=== PATIENT | male | born 1995 | race Caucasian/White ===

== ENCOUNTER 2017-06-16 00:34 | Emergency (ER) | payer OTHER ==
[2017-06-16] MEDS ORDERED: NS 1,000 ML IV ONE (01:14)
[2017-06-16] MEDS ORDERED: ONDANSETRON 4 MG/2 ML VIAL IVP ONE (01:14)
--- NOTE | 2017-06-16 01:19 | EDPHY ---
H & P Stated Complaint: abd pain and vomiting with pink in it HPI/ROS: HPI CHIEF COMPLAINT: Nausea, vomiting, abdominal pain after drinking a 0.5 L of Jagermeister, and eating spicy food HISTORY OF PRESENT ILLNESS: Patient 22-year-old male, otherwise healthy with no significant medical history presents emergency room nausea vomiting and abdominal cramping after he drank a half a L of Jagermeister and then a very spicy foods. Denies any chest pain or shortness of breath. Denies diarrhea denies fever. He vomited 6 times. He states on his last vomit he had some pink discoloration to he became concerned and came to the emergency room. Past Medical History: Denies medical history Past Surgical History: Denies surgical history Social History: Drank a large amount of alcohol tonight. [employer] student. Denies illicit drugs tobacco. Family History: Noncontributory ROS REVIEW OF SYSTEMS: A comprehensive 10 point review of systems is otherwise negative aside from elements mentioned in the history of present illness. Exam Constitutional appears well nontoxic triage nursing summary reviewed, vital signs reviewed, awake/alert. Eyes normal conjunctivae and sclera, EOMI, PERRLA. HENT normal inspection, atraumatic, moist mucus membranes, no epistaxis, neck supple/ no meningismus, no raccoon eyes. Respiratory clear to auscultation bilaterally, normal breath sounds, no respiratory distress, no wheezing. Cardiovascular rate normal, regular rhythm, no murmur, no edema, distal pulses normal. Gastrointestinal no significant tenderness on exam, soft, non-tender, no rebound, no guarding, normal bowel sounds, no distension, no pulsatile mass. Genitourinary no CVA tenderness. Musculoskeletal no midline vertebral tenderness, full range of motion, no calf swelling, no tenderness of extremities, no meningismus, good pulses, neurovascularly intact. Skin pink, warm, & dry, no rash, skin atraumatic. Neurologic awake, alert and oriented x 3, AAOx3, moves all 4 extremities equally, motor intact, sensory intact, CN II-XII intact, normal cerebellar, normal vision, normal speech. Psychiatric normal mood/affect. Heme/Lymph/Immune no lymphadenopathy. Differential diagnosis includes but is not limited to and in no particular order : Alcohol-induced gastritis, alcohol-induced pancreatitis, peptic ulcer disease , Shannan-Leger tear, esophagitis, Bowel obstruction, appendicitis, gallbladder disease, diverticulitis, colitis, enteritis, perforated viscus, gastritis, GERD , esophagitis, urinary tract infection, pyelonephritis, kidney stones Medical Decision Making: Plan for this patient IV establishment with IV Pepcid , IV Zofran nausea, IV fluids, check basic blood work including lipase and re- evaluate. At this time I do not feel the patient needs any imaging. Will treat symptomatically re-evaluate. Re-evaluation: 0258: Re-examination at this time this patient is resting comfortably abdomen is soft nontender. He is not vomiting he feels much better. He did receive fluid here normal saline IV in the emergency room. His blood work has been reviewed. He was dehydrated. His alcohol level was 139. Recommend he refrain from drinking alcohol for the next 2 weeks, stay away from spicy fatty greasy foods. Distally return precautions discussed with the patient understands return emergency room if develops worsening abdominal pain fever vomiting. Source: Patient - Personal History Current Tetanus/Diphtheria Vaccine: Yes Current Tetanus Diphtheria and Acellular Pertussis (TDAP): Yes Tetanus Vaccine Date: 2008 - Medical/Surgical History Hx Asthma: No Hx Chronic Respiratory Disease: No Hx Diabetes: No Hx Cardiac Disease: No Hx Renal Disease: No Hx Cirrhosis: No Hx Alcoholism: No Hx HIV/AIDS: No Hx Splenectomy or Spleen Trauma: No Other PMH: denies - Social History Smoking Status: Never smoked Constitutional: Initial Vital Signs Temperature (C) 36.5 C 06/16/17 01:04 Heart Rate 78 06/16/17 01:04 Respiratory Rate 16 06/16/17 01:04 Blood Pressure 118/69 06/16/17 01:04 O2 Sat (%) 95 06/16/17 01:04 O2 Delivery Mode Room Air Allergies/Adverse Reactions: No Known Allergies Allergy (Unverified 06/16/17 01:06) Home Medications: Medication Instructions Recorded NK [No Known Home Meds] 06/16/17 Medical Decision Making - Data Points Laboratory Results: Laboratory Results 06/16/17 01:43 06/16/17 01:43 06/16/17 06/16/17 06/16/17 02:30 01:43 01:43 WBC RBC Hgb Hct MCV MCH MCHC RDW Plt Count MPV Neut % (Auto) Lymph % (Auto) [place] % (Auto) Eos % (Auto) Baso % (Auto) Nucleat RBC Rel Count Absolute Neuts (auto) Absolute Lymphs (auto) Absolute Monos (auto) Absolute Eos (auto) Absolute Basos (auto) Absolute Nucleated RBC Immature Gran % Immature Gran # PT 15.4 SEC H SEC (12.0-15.0) INR 1.20 H (0.83-1.16) APTT 27.8 SEC SEC (23.0-38.0) Sodium 147 mEq/L H mEq/L (135-145) Potassium 4.3 mEq/L mEq/L (3.5-5.2) Chloride 104 mEq/L mEq/L (97-110) Carbon Dioxide 21 mEq/l L mEq/l (22-31) Anion Gap 22 mEq/L H mEq/L (8-16) BUN 11 mg/dL mg/dL (7-23) Creatinine 0.7 mg/dL mg/dL (0.7-1.3) Estimated GFR > 60 Glucose 104 mg/dL H mg/dL (70-100) Calcium 9.6 mg/dL mg/dL (8.5-10.4) Total Bilirubin 1.4 mg/dL mg/dL (0.1-1.4) Conjugated Bilirubin 0.2 mg/dL mg/dL (0.0-0.5) Unconjugated Bilirubin 1.2 mg/dL H mg/dL (0.0-1.1) AST 28 IU/L IU/L (17-59) ALT 26 IU/L IU/L (21-72) Alkaline Phosphatase 52 IU/L IU/L (38-126) Total Protein 7.6 g/dL g/dL (6.3-8.2) Albumin 4.8 g/dL g/dL (3.5-5.0) Lipase 73 IU/L IU/L (23-300) Urine Color YELLOW Urine Appearance CLEAR Urine pH 6.0 (5.0-7.5) Ur Specific [place] 1.011 (1.002-1.030) Urine Protein NEGATIVE (NEGATIVE) Urine Ketones NEGATIVE (NEGATIVE) Urine Blood NEGATIVE (NEGATIVE) Urine Nitrate NEGATIVE (NEGATIVE) Urine Bilirubin NEGATIVE (NEGATIVE) Urine Urobilinogen NEGATIVE EU EU (0.2-1.0) Ur Leukocyte Esterase NEGATIVE (NEGATIVE) Urine Glucose NEGATIVE (NEGATIVE) Ethyl Alcohol 139 mg/dL H mg/dL (0-10) 06/16/17 01:43 WBC 6.87 10^3/uL 10^3/uL (3.80-9.50) RBC 4.94 10^6/uL 10^6/uL (4.40-6.38) Hgb 14.6 g/dL g/dL (13.7-17.5) Hct 40.9 % % (40.0-51.0) MCV 82.8 fL fL (81.5-99.8) MCH 29.6 pg pg (27.9-34.1) MCHC 35.7 g/dL g/dL (32.4-36.7) RDW 11.9 % % (11.5-15.2) Plt Count 274 10^3/uL 10^3/uL (150-400) MPV 9.6 fL fL (8.7-11.7) Neut % (Auto) 71.8 % % (39.3-74.2) Lymph % (Auto) 22.3 % % (15.0-45.0) Potter % (Auto) 5.1 % % (4.5-13.0) Eos % (Auto) 0.1 % L % (0.6-7.6) Baso % (Auto) 0.6 % % (0.3-1.7) Nucleat RBC Rel Count 0.0 % % (0.0-0.2) Absolute Neuts (auto) 4.93 10^3/uL 10^3/uL (1.70-6.50) Absolute Lymphs (auto) 1.53 10^3/uL 10^3/uL (1.00-3.00) Absolute Monos (auto) 0.35 10^3/uL 10^3/uL (0.30-0.80) Absolute Eos (auto) 0.01 10^3/uL L 10^3/uL (0.03-0.40) Absolute Basos (auto) 0.04 10^3/uL 10^3/uL (0.02-0.10) Absolute Nucleated RBC 0.00 10^3/uL 10^3/uL (0-0.01) Immature Gran % 0.1 % % (0.0-1.1) Immature Gran # 0.01 10^3/uL 10^3/uL (0.00-0.10) PT INR APTT Sodium Potassium Chloride Carbon Dioxide Anion Gap BUN Creatinine Estimated GFR Glucose Calcium Total Bilirubin Conjugated Bilirubin Unconjugated Bilirubin AST ALT Alkaline Phosphatase Total Protein Albumin Lipase Urine Color Urine Appearance Urine pH Ur Specific [place] Urine Protein Urine Ketones Urine Blood Urine Nitrate Urine Bilirubin Urine Urobilinogen Ur Leukocyte Esterase Urine Glucose Ethyl Alcohol Medications Given: Discontinued Medications Famotidine (Pepcid) 20 mg IVP EDNOW ONE Stop: 06/16/17 01:24 Last Admin: 06/16/17 01:57 Dose: 20 mg Sodium Chloride (Ns) 1,000 mls @ 0 mls/hr IV EDNOW ONE; Wide Open PRN Reason: Protocol Stop: 06/16/17 01:15 Last Admin: 06/16/17 01:43 Dose: 1,000 mls Ondansetron HCl (Zofran) 4 mg IVP EDNOW ONE Stop: 06/16/17 01:15 Last Admin: 06/16/17 01:43 Dose: 4 mg Departure - Departure Disposition: Home, Routine, Self-Care Clinical Impression: Nausea and vomiting Qualifiers: Vomiting type: unspecified Vomiting Intractability: non-intractable Qualified Code(s): R11.2 - Nausea with vomiting, unspecified Alcohol intoxication Qualifiers: Complication of substance-induced condition: uncomplicated Qualified Code(s): F10.920 - Alcohol use, unspecified with intoxication, uncomplicated Condition: Good Instructions: Acute Nausea and Vomiting (ED) Additional Instructions: 1. Return emergency room if develops worsening abdominal pain fever vomiting. 2. No spicy fatty greasy foods and no alcohol for 2 weeks. Referrals: NONE *PRIMARY CARE P,. [Primary Care Provider] - As per Instructions
[2017-06-16] MEDS ORDERED: FAMOTIDINE 20 MG/2 ML SDV IVP ONE (01:23)
[2017-06-16 02:01] LABS: PLATELET COUNT 274 10^3/uL (150-400)
[2017-06-16 02:09] LABS: INR 1.2 (0.83-1.16); PROTIME(PATIENT) 15.4 SEC (12.0-15.0)
[2017-06-16 02:41] VITALS: RESP 18
[2017-06-16 03:24] VITALS: BP 105/51; PULSE 56; TEMP 98.2; O2SAT 93
== END 2017-06-16 03:22 | disposition home or self-care (01) ==
DX: R11.2 Nausea with vomiting, unspecified (principal); F10.920 Alcohol use, unspecified with intoxication, uncomplicated; E86.9 Volume depletion, unspecified
CPT/HCPCS: 96374; G0480; J2405